=== PATIENT | male | born 1975 | race Caucasian/White ===

== ENCOUNTER 2023-02-21 06:00 | Day surgery (SDC) | payer OTHER ==
[2023-02-21] MEDS ORDERED: PROTONIX20 MG PO (08:22)
== END 2023-02-21 10:30 | disposition home or self-care (01) ==
LOC: AMB-ENDOS 06:00 → CIR.AMB 14:45 → AMB-ENDOS 14:45
PROVIDERS: ATTEND Surgery
DX: K29.60 Other gastritis without bleeding (principal); K44.9 Diaphragmatic hernia without obstruction or gangrene; E66.01 Morbid (severe) obesity due to excess calories; Z68.41 Body mass index [BMI] 40.0-44.9, adult; Z20.822 Contact with and (suspected) exposure to COVID-19